=== PATIENT | female | born 1940 | race Caucasian/White ===

== ENCOUNTER 2018-08-21 03:09 | Emergency (ER) | payer OTHER ==
[~2018-08-21] VITALS: Ht 165.1 cm; Wt 83.9 kg
[2018-08-21 05:23] VITALS: BP 170/73
== END 2018-08-21 05:24 | disposition home or self-care (01) ==
LOC: ER 03:09
DX: S01.01XA Laceration without foreign body of scalp, initial encounter (principal); S51.811A Laceration without foreign body of right forearm, initial encounter; Z88.0 Allergy status to penicillin; W01.0XXA Fall on same level from slipping, tripping and stumbling without subsequent striking against object, initial encounter; Y93.89 Activity, other specified; Y92.89 Other specified places as the place of occurrence of the external cause; Y99.8 Other external cause status

== ENCOUNTER 2019-07-04 02:28 | Emergency (ER) | payer OTHER ==
[~2019-07-04] VITALS: Ht 160 cm; Wt 93.0 kg
[2019-07-04 03:25] LABS: URINE BILIRUBIN 1+ (Negative); URINE BLOOD NEGATIVE (Negative); URINE CLARITY SL CLOUDY; URINE COLOR YELLOW; URINE GLUCOSE-RANDOM* NEGATIVE (Negative); URINE KETONES 1+ (Negative); URINE LEUKOCYTES-REFLEX TRACE (Negative); URINE NITRITE-REFLEX NEGATIVE (Negative); URINE PROTEIN (DIPSTICK) 2+ (Negative); URINE SPECIFIC GRAVITY >= 1.030 (1.005-1.035)
[2019-07-04 03:33] LABS: HEMATOCRIT 47.2 % (37.0-47.0); HEMOGLOBIN 15.8 gm/dL (12.0-15.0); MCH 29.8 pg (26.0-34.0); MCHC 33.5 g/dL (28.0-37.0); MCV 88.9 fL (80.0-100.0); PLATELET COUNT 351 thou/uL (150-400); RBC 5.31 mil/uL (4.20-5.00); RDW 14.1 % (10.5-14.5); WBC 8.5 thou/uL (4.0-11.0)
[2019-07-04 03:34] LABS: CREATININE 1.3 mg/dL (0.6-1.0); POTASSIUM 5.1 mmol/L (3.5-5.1)
[2019-07-04 03:40] LABS: ALBUMIN 3.8 g/dL (3.4-5.0); BACTERIA-REFLEX 1-9 Few /HPF (None Seen); CRYSTALS None Seen /LPF (None Seen); HYALINE CASTS 4-10 Moderate /LPF (None Seen); SQUAMOUS 4-10 Moderate /LPF (0-3); TOTAL BILIRUBIN 0.6 mg/dL (<0.1-1.0); TOTAL PROTEIN 7.7 g/dL (6.4-8.2); URINE RBC 0-2 Rare /HPF (0-2); URINE WBC-REFLEX 0-5 Rare /HPF (0-5)
[2019-07-04 03:50] VITALS: BP 152/80
[2019-07-04 04:58] LABS: ABSOLUTE NEUTROPHILS 4.6 thou/uL (1.4-8.2); PLATELET ESTIMATE NORMAL
--- NOTE | 2019-07-04 08:36 | EKG ---
[facility] [place] [address] ELECTROCARDIOGRAM REPORT Name: JHONNY MORE Room #: DEP [facility].#: [id number] Admission: 07/04/19 Attend Phys: Discharge: 07/04/19 Date of : 36 Report #: [id number] THIS REPORT FOR: cc: Alfredo Mitchell MD, Kirk D. MD Lundgren, Craig H. MD [facility] THIS REPORT FOR: //name// [facility] ED Test Date: 2019-07-04 Test Time: 02:58:24 Pat Name: JHONNY MORE Department: Room: Gender: F [employer] Consultant: NO : 1940 Requested By: Jonathan Chadwick Order Number: [id number] MD: Roc Lizama Measurements Intervals [place] Rate: 69 P: 48 FL: 195 QRS: -12 QRSD: 91 T: 14 QT: 382 QTc: 410 Interpretive Statements Sinus rhythm Poor R wave progression No previous ECG available for comparison Electronically Signed On 07-04-2019 8:35:05 CDT by Roc Lizama [email or web address] <ELECTRONICALLY SIGNED> By: Roc Lizama MD, [facility] 07/04/19 [id number] Roc Lizama MD, [facility] /EPI
== END 2019-07-04 03:50 | disposition home or self-care (01) ==
LOC: ER 02:28
PROVIDERS: Emergency Medicine
DX: S02.2XXA Fracture of nasal bones, initial encounter for closed fracture (principal); Z88.0 Allergy status to penicillin; W01.0XXA Fall on same level from slipping, tripping and stumbling without subsequent striking against object, initial encounter; Y93.89 Activity, other specified; Y92.89 Other specified places as the place of occurrence of the external cause; Y99.8 Other external cause status